=== PATIENT | female | born 1940 | race Caucasian/White ===

== ENCOUNTER 2016-03-12 10:25 | Outpatient (CLI) | payer OTHER, MEDICARE ==
[~2016-03-12 10:25] MED LIST: ACTOS15 MG PO; AMARYL1 MG PO; ASPIRIN ADULT L81 M1 PO; BETIMOL0.25 %; CALCIUM/VITAMI600 MG PO; DUREZOL0.05 % OP; GLUCOPHAGE500 MG PO; GLUCOSAMINE500 M1 PO; LEVOTHYROXINE75 MCG PO; LISINOPRIL20 MG PO; LUMIGAN0.01 % OP; NITROSTAT0.4 MG SL; NORCO1 TA1 PO; OMEGA 31000 MG PO; PLAVIX75 MG PO; VITAMIN D-31000 UNIT PO; ZOCOR40 MG PO
--- NOTE | 2016-03-12 11:46 | DIAGNOSTIC IMAGING REPORT ---
PROCEDURE: MG UNILAT SCREEN-RIGHT W/CAD INDICATION: SCREENING RIGHT, LT MASTECTOMY TECHNIQUE: CC and MLO digital views. COMPARISON: Compared to 12/14/2014, 01/22/2014 FINDINGS: Computer-aided detection applied. Mildly dense with a few dystrophic calcifications. There is a 5 mm mildly lobulated nodular density in the central right breast (middle third, seen only on CC view). IMPRESSION: 1. There is a 5 mm nodular density in the central right breast (seen only on CC view). While this may represent normal asymmetric parenchyma, underlying mass or cyst should be considered. Further mammographic views (true lateral view, CC and MLO spot compression views) are recommended. In addition, right breast ultrasound is recommended. RESULT CODE: 0- Incomplete; needs additional evaluation. A. A negative report should not delay biopsy if a dominant or clinically suspicious mass is present. 10-15% of cancers are not identified by x-ray. B. A negative report may reinforce clinical impression. C. Adenosis and dense breasts may obscure an underlying neoplasm. D. False positive reports average 6-10%. E.. A yearly screening mammogram is recommended. A reminder letter will be scheduled.
== END 2016-03-12 23:00 ==
LOC: MAM SRH 10:25
DX: Z12.31 Encounter for screening mammogram for malignant neoplasm of breast (principal); Z85.3 Personal history of malignant neoplasm of breast

== ENCOUNTER 2016-03-19 11:12 | Outpatient (CLI) | payer OTHER, MEDICARE ==
--- NOTE | 2016-03-19 15:43 | DIAGNOSTIC IMAGING REPORT ---
PROCEDURE: MG UNILATERAL DIAG-RT W/CAD INDICATION: Follow-up right breast nodular density. History of mastectomy for left breast carcinoma. Status post resection of right breast benign papilloma (03/04/2015) TECHNIQUE: True lateral digital view of the right breast. In addition, spot compression CC and MLO views were obtained of the central right breast (region of clinical concern). Finally, high-resolution right breast ultrasound was performed (18 mHz). COMPARISON: Comparison is made to screening mammogram studies (03/12/2016), right breast ultrasound (02/07/2015), and outside breast MRI (12/20/2014). FINDINGS: MAMMOGRAM: Computer-aided detection applied. Confirmation of a 5 mm mildly lobulated nodular density in the central right breast. BREAST ULTRASOUND: Normal parenchyma. No evidence of mass or cyst. IMPRESSION: 1. Confirmation of a 5 mm nodular density in the central right breast without corresponding ultrasound abnormality. Overall appearance is most compatible with normal asymmetric parenchyma or benign intramammary lymph node. While there is no evidence of underlying abnormality, early follow-up right mammogram and right breast ultrasound in 6 months is recommended to confirm stability or resolution. 2. Findings discussed with the patient. RESULT CODE: 3- Probably benign findings - initial short-interval follow-up suggested. A. A negative report should not delay biopsy if a dominant or clinically suspicious mass is present. 10-15% of cancers are not identified by x-ray. B. A negative report may reinforce clinical impression. C. Adenosis and dense breasts may obscure an underlying neoplasm. D. False positive reports average 6-10%. E.. A yearly screening mammogram is recommended. A reminder letter will be scheduled.
== END 2016-03-19 23:00 ==
LOC: MAM SRH 11:12
DX: N63 Unspecified lump in breast (principal)